=== PATIENT | female | born 1965 | race Caucasian/White ===

== ENCOUNTER → 2017-04-26 | Outpatient (CLI) | payer MEDICAID | LOC: WI 10:08 | PROVIDERS: ATTEND Family Medicine | DX: Z53.9 Procedure and treatment not carried out, unspecified reason (principal) ==

== ENCOUNTER → 2017-05-03 | Outpatient (CLI) | payer MEDICAID ==
--- NOTE | 2017-05-03 15:16 | WOMENS IMAGING REPORT ---
EXAM DESCRIPTION: BILAT SCREENING MAMMO W/CAD COMPLETED DATE/TIME: 05/03/2017 9:11 am REASON FOR STUDY: SCREENING MAMMO Z12.31 ENCNTR SCREEN MAMMOGRAM FOR MALIGNANT NEOPLASM OF AKHIL COMPARISON: None. TECHNIQUE: Standard craniocaudal and mediolateral oblique views of each breast recorded using digita l acquisition. LIMITATIONS: None. FINDINGS: No masses, calcifications or architectural distortion. No areas of suspicion. Read with the assistance of CAD. .[facility] - R2 Cenova Version 1.3 .[facility] - R2 Cenova Version 1.3 .[facility] - R2 Cenova Version 2.4 .[facility] - R2 Cenova Version 2.4 .[facility] - R2 [employer] Version 9.2 IMPRESSION: NORMAL MAMMOGRAM. BIRADS 1. BREAST DENSITY: b. There are scattered areas of fibroglandular density. BIRAD: 1 NEGATIVE RECOMMENDATION: ROUTINE SCREENING COMMENT: The patient has been notified of the results by letter per SA requirements. Additional no tification policies are in place for contacting patient with suspicious or incomplete findings. Quality ID #[id number]: The [employer] recommends an annual screening mammogram for women aged 40 years or over. This facility utilizes a reminder system to ensure that all patients receive reminder letters, and/or direct phone calls for appointments. This includes reminders for routine scr eening mammograms, diagnostic mammograms, or other Breast Imaging Interventions when appropriate. Th is patient will be placed in the appropriate reminder system. The [employer] (ACR) has developed recommendations for screening MRI of the breast s in certain patient populations, to be used in conjunction with mammography. Breast MRI surveillanc e may be appropriate for women with more than 20% lifetime risk of developing breast cancer as deter mined by genetic testing, significant family history of the disease, or history of mantle radiation f or Hodgkins Disease. ACR Practice Guidelines 2008. TECHNICAL DOCUMENTATION: FINDING NUMBER: (1) ASSESSMENT: (1) JOB ID: [id number] [employer]- All Rights Reserved
== END ==
LOC: WI 03-17 09:43
PROVIDERS: ATTEND Family Medicine
DX: Z12.31 Encounter for screening mammogram for malignant neoplasm of breast (principal)
CPT/HCPCS: 77067; G0202

== ENCOUNTER 2017-05-14 07:39 | Day surgery (SDC) | payer MEDICAID ==
[~2017-05-14 07:39] MED LIST: DEXMEDETOMIDINE INJ 80 MCG/20 ML VIAL IV ONE; LIDOCAINE 2% INJ-PF (20 MG/ML) 10 ML AMPUL ONE; ONDANSETRON HCL INJ/PF 4 MG/2 ML SDV ONE; PROPOFOL INJ 200 MG/20 ML VIAL IV ONE
[2017-05-14] MEDS ORDERED: DIPHENHYDRAMINE HCL 50 MG/ML VIAL IV PRN (10:00)
[2017-05-14] MEDS ORDERED: MEPERIDINE HCL/PF INJ 25 MG/1 ML DISP.SYRIN IV PRN (10:00)
[2017-05-14] MEDS ORDERED: MORPHINE SULFATE 10 MG/ML INJ IV PRN (10:00)
[2017-05-14] MEDS ORDERED: FENTANYL CITRATE INJ/PF 100 MCG/2 ML AMPUL IV PRN ×3 (10:00)
[2017-05-14] MEDS ORDERED: PROMETHAZINE HCL INJ 25 MG/1 ML VIAL IV PRN ×3 (10:00→10:14)
[2017-05-14] MEDS ORDERED: ACETAMINOPHEN 325 MG TABLET PO PRN (10:13)
[2017-05-14] MEDS ORDERED: SIMETHICONE 80 MG TAB.CHEW PO PRN (10:13)
--- NOTE | 2017-05-14 11:39 | Operative Report ---
Operative Report DATE OF SURGERY: 05/14/17 Operative Report: Risks, benefits and alternatives of the procedure including risks of bleeding, perforation requiring surgery are explained to the patient detail and informed consent was obtained. Patient is taken back to the operating room and placed in the left, lateral decubital position. Timeout was called. Propofol medications administered. A rectal examination was done which did not reveal any masses, tears or fissures. An Olympus videoscope was inserted into the patient's rectum. The scope was then carefully advanced all the way to the cecum. The cecum was identified by the usual anatomical landmarks including the ileocecal valve as well as the appendiceal office. Photodocumentation is obtained. Prep was good. Scope was then sequentially pulled back via the various segments of the colon including the ascending colon, hepatic flexure, transverse colon, splenic flexure, descending colon finding the rectosigmoid portions of the colon. Retroflexion maneuvers performed. PREOPERATIVE DIAGNOSIS: Colorectal cancer screening POSTOPERATIVE DIAGNOSIS: Colon polyp removed via biopsy forceps, internal hemorrhoids OPERATION: Colonoscopy with biopsy SURGEON: ALEXA MARTINEZ ANESTHESIA: LMAC TISSUE REMOVED OR ALTERED: As noted above. COMPLICATIONS: None. ESTIMATED BLOOD LOSS: None. INTRAOPERATIVE FINDINGS: As noted above. PROCEDURE: Patient tolerated procedure well. No immediate postprocedure complications are noted. Patient discharged in good condition. Discharge date 05/14/2017. Discharge diet: Regular. Discharge activity: Regular. 2-3 week follow-up to discuss findings. 3-5 year surveillance colonoscopy. Patient is instructed to call the office or proceed to the emergency room should there be any further problems or questions. We will await pathology.
[2017-05-14 15:00] VITALS: BP 120/73
== END 2017-05-14 11:50 | disposition home or self-care (01) ==
LOC: OROUT 07:39
PROVIDERS: ATTEND Internal Medicine Gastroenterology
PROC: 0DBN8ZX Excision of Sigmoid Colon, Via Natural or Artificial Opening Endoscopic, Diagnostic (ICD-10-PCS; principal; 2017-05-14 08:30)
DX: Z12.11 Encounter for screening for malignant neoplasm of colon (principal); K63.5 Polyp of colon; K64.8 Other hemorrhoids; E78.5 Hyperlipidemia, unspecified; E04.9 Nontoxic goiter, unspecified; Z87.891 Personal history of nicotine dependence; Z79.899 Other long term (current) drug therapy; Z79.51 Long term (current) use of inhaled steroids; Z79.1 Long term (current) use of non-steroidal anti-inflammatories (NSAID)
CPT/HCPCS: 45380; 88305 ×2; J2405; J2704; J3490 ×2; 810

== ENCOUNTER → 2017-08-18 | Outpatient (CLI) | payer MEDICAID ==
[2017-08-18 08:20] LABS: ABSOLUTE BASOPHILS # (AUTO) 0.1 10^3/uL (0.0-0.2); ABSOLUTE EOSINOPHILS # (AUTO) 0.2 10^3/uL (0.0-0.6); ABSOLUTE LYMPHOCYTES (AUTO) 1.2 10^3/uL (0.5-4.7); ABSOLUTE MONOCYTES (AUTO) 0.4 10^3/uL (0.1-1.4); ABSOLUTE NEUT (AUTO) 4.4 10^3/uL (1.7-8.2); EOSINOPHILS % (AUTO) 3.9 % (0-6); HEMATOCRIT 40.7 % (36.0-47.0); HEMOGLOBIN 13.7 g/dL (12.0-15.5); MEAN CORPUSCULAR HGB CONC 33.6 g/dL (32.0-36.0); MEAN CORPUSCULAR VOLUME 89 fl (80-97); MONOCYTES % (AUTO) 5.9 % (3-13); PLATELET COUNT 286 10^3/uL (150-450); RED BLOOD COUNT 4.56 10^6/uL (3.72-5.28); RED CELL DISTRIBUTION WIDTH 13.1 % (11.5-14.0); SEGMENTED NEUTROPHILS % (AUTO) 70.2 % (42-78); TOTAL CELLS COUNTED % (AUTO) 100 %; WHITE BLOOD COUNT 6.2 10^3/uL (4.0-10.5)
[2017-08-18 08:43] LABS: ALANINE AMINOTRANSFERASE 37 U/L (9-52); ALBUMIN 3.9 g/dL (3.5-5.0); ALKALINE PHOSPHATASE 48 U/L (38-126); ANION GAP 7 (5-19); ASPARTATE AMINO TRANSFERASE 19 U/L (14-36); BILIRUBIN,DIRECT 0.3 mg/dL (0.0-0.4); BILIRUBIN,TOTAL 0.4 mg/dL (0.2-1.3); BLOOD UREA NITROGEN 6 mg/dL (7-20); CALCIUM 9.6 mg/dL (8.4-10.2); CARBON DIOXIDE 25 mmol/L (22-30); CHLORIDE 110 mmol/L (98-107); GLUCOSE 99 mg/dL (75-110); LITHIUM 1.2 mEq/L (0.6-1.2); SODIUM 141.8 mmol/L (137-145); TOTAL PROTEIN 6.2 g/dL (6.3-8.2); TRIGLYCERIDES 112 mg/dL (<150)
[2017-08-18 08:54] LABS: DIRECT LDL 101 mg/dL (<100)
== END ==
LOC: OD 07:22
PROVIDERS: ATTEND Nurse Practitioner Psychiatric/Mental Health
DX: F40.00 Agoraphobia, unspecified (principal); Z79.899 Other long term (current) drug therapy
CPT/HCPCS: 36415; 80053; 80061; 80178; 85025

== ENCOUNTER → 2017-10-29 | Outpatient (CLI) | payer MEDICAID ==
[2017-10-29 09:34] LABS: BLOOD UREA NITROGEN 12 mg/dL (7-20); LITHIUM 1.5 mEq/L (0.6-1.2)
== END ==
LOC: OD 07:52
PROVIDERS: ATTEND Nurse Practitioner Psychiatric/Mental Health
DX: F40.00 Agoraphobia, unspecified (principal)
CPT/HCPCS: 36415; 80178; 82565; 84520

== ENCOUNTER 2018-01-05 02:48 | Observation (INO) | payer MEDICAID ==
--- NOTE | 2018-01-05 04:19 | ER Document Report ---
ED General - General Mode of Arrival: Ambulatory Information source: Patient TRAVEL OUTSIDE OF THE [place] IN LAST 30 DAYS: No <JOSEFA REYNOSO - Last Filed: 01/05/18 04:43> <RUBIA FRY - Last Filed: 01/05/18 06:54> - General Stated Complaint: ABDOMINAL PAIN Time Seen by Provider: 01/05/18 03:54 Notes: Patient is a 52 y.o female with a PMHx of chronic lower back pain, anxiety, bipolar disorder, depression, schizophrenia, hypothyroidism and a PSHx of hysterectomy and inguinal hernia repair. She presents to the ED with periumbilical abd pain of onset yesterday morning at 0300. Pt reports that she woke up from sleep yesterday morning due to her abd pain and throughout the day she was feeling some pain to her epigastric region/chest and had believed it to be gas and took medication but was without any relief. Pt also reports diarrhea yesterday. Pt reports taking medications for her bipolar disorder and thyroid. She denies still taking any medications for her chronic lower back pain. Pt still has her appendix. (JOSEFA REYNOSO) - Related Data Allergies/Adverse Reactions: No Known Allergies Allergy (Verified 05/13/17 10:10) Past Medical History - General Information source: Patient - Social History Smoking Status: Current Every Day Smoker Cigarette use (# per day): Yes - 1.5 packs/day Smoking Education Provided: Yes Frequency of alcohol use: None Family History: Reviewed & Not Pertinent - Past Medical History Cardiac Medical History: Reports: Hx Pulmonary Embolism Endocrine Medical History: Reports: Hx Hypothyroidism Musculoskeletal Medical History: Reports Hx Arthritis - LOWER BACK Psychiatric Medical History: Reports: Hx Anxiety, Hx Bipolar Disorder, Hx Depression, Hx Schizophrenia Past Surgical History: Reports: Hx Hysterectomy, Hx Inguinal Hernia - Immunizations Hx Diphtheria, Pertussis, Tetanus Vaccination: No <JOSEFA REYNOSO - Last Filed: 01/05/18 04:43> Review of Systems - Review of Systems Constitutional: No symptoms reported EENT: No symptoms reported Cardiovascular: No symptoms reported Respiratory: No symptoms reported Gastrointestinal: See HPI, Abdominal pain, Diarrhea Genitourinary: No symptoms reported Female Genitourinary: No symptoms reported Musculoskeletal: No symptoms reported Skin: No symptoms reported Hematologic/Lymphatic: No symptoms reported Neurological/Psychological: No symptoms reported -: Yes All other systems reviewed and negative <JOSEFA REYNOSO - Last Filed: 01/05/18 04:43> Physical Exam <JOSEFA REYNOSO - Last Filed: 01/05/18 04:43> <RUBIA FRY - Last Filed: 01/05/18 06:54> - Vital signs Vitals: Temp Resp 98.3 F 33 H 01/05/18 02:58 01/05/18 02:58 - Notes Notes: Physical Exam: General: Alert. HEENT: Normocephalic. Atraumatic. PERRL. Extraocular movements intact. Oropharynx clear. Neck: Supple. Non-tender. Respiratory: No respiratory distress. Clear and equal breath sounds bilaterally. Cardiovascular: Regular rate and rhythm. Abdominal: Very tender to palpate RLQ, guarding. Percussion resonant throughout. Active bowel sounds. Back: Non-tender. No deformity or step off. Extremities: Moves all four extremities. Upper extremities: Normal inspection. Normal ROM. Lower extremities: Normal inspection. No edema. Normal ROM. Neurological: Normal cognition. AAOx3. Normal speech. Psychological: Normal affect. Normal Mood. Skin: Warm. Dry. Normal color. (JOSEFA REYNOSO) Course - Laboratory Result Diagrams: 01/05/18 03:10 01/05/18 03:10 <JOSEFA REYNOSO - Last Filed: 01/05/18 04:43> - Laboratory Result Diagrams: 01/05/18 03:10 01/05/18 03:10 - EKG Interpretation by Nm EKG shows normal: Sinus rhythm, [place], Intervals, QRS Complexes. abnormal: ST-T Waves - Nonspecific anterolateral T abnormalities Rate: Normal - 75 Rhythm: NSR [place]/QRS: LAHB/LAFB - Transfer of Care Care transferred to following provider: Dr. Bourne <RUBIA FRY - Last Filed: 01/05/18 06:54> - Vital Signs Vital signs: Temp Pulse Resp BP Pulse Ox 98.3 F 20 144/86 H 96 01/05/18 02:58 01/05/18 06:00 01/05/18 05:01 01/05/18 06:00 - Laboratory Laboratory results interpreted by hi: 01/05/18 01/05/18 01/05/18 03:10 03:10 05:40 WBC 13.1 H Seg Neutrophils % 82.7 H Lymphocytes % 8.0 L Absolute Neutrophils 10.8 H Potassium 3.3 L Chloride 108 H BUN 6 L Glucose 147 H AST 87 H Total Protein 6.2 L [place] 0.5 L - Transfer of Care Notes: 01/05/18 06:54 Patient is pending oral and IV contrast a CT scan of the abdomen and pelvis. Diagnosis and disposition can likely be made after the scan results. (RUBIA FRY) Discharge <JOSEFA REYNOSO - Last Filed: 01/05/18 04:43> <RUBIA FRY - Last Filed: 01/05/18 06:54> - Discharge Clinical Impression: Abdominal pain Qualifiers: Abdominal location: unspecified location Qualified Code(s): R10.9 - Unspecified abdominal pain Referrals: PANDA AMIN NP [Primary Care Provider] - Follow up as needed Scribe Attestation: 01/05/18 05:12 I personally performed the services described in the documentation, reviewed and edited the documentation which was dictated to the scribe in my presence, and it accurately records my words and actions. (RUBIA FRY) Scribe Documentation - Scribe Written by Kayleigh:: Kayleigh Lyn 01/05/18 0420 acting as scribe for :: Jessica <JOSEFA REYNOSO - Last Filed: 01/05/18 04:43>
[2018-01-05] MEDS ORDERED: NORMAL SALINE 1000 ML 1,000 ML IV ONE ×2 (04:21→09:45)
[2018-01-05] MEDS ORDERED: FENTANYL CITRATE INJ/PF 100 MCG/2 ML AMPUL IV ONE ×3 (04:21→09:59)
[2018-01-05 04:26] LABS: ABSOLUTE BASOPHILS # (AUTO) 0.1 10^3/uL (0.0-0.2); ABSOLUTE EOSINOPHILS # (AUTO) 0.5 10^3/uL (0.0-0.6); ABSOLUTE MONOCYTES (AUTO) 0.6 10^3/uL (0.1-1.4); ABSOLUTE NEUT (AUTO) 10.8 10^3/uL (1.7-8.2); BASOPHILS % (AUTO) 0.4 % (0-2); HEMATOCRIT 41.9 % (36.0-47.0); HEMOGLOBIN 14.3 g/dL (12.0-15.5); MEAN CORPUSCULAR HEMOGLOBIN 30.9 pg (27.0-33.4); MEAN CORPUSCULAR HGB CONC 34.1 g/dL (32.0-36.0); MEAN CORPUSCULAR VOLUME 91 fl (80-97); MONOCYTES % (AUTO) 4.9 % (3-13); PLATELET COUNT 392 10^3/uL (150-450); RED BLOOD COUNT 4.62 10^6/uL (3.72-5.28); RED CELL DISTRIBUTION WIDTH 13.8 % (11.5-14.0); SEGMENTED NEUTROPHILS % (AUTO) 82.7 % (42-78); TOTAL CELLS COUNTED % (AUTO) 100 %; WHITE BLOOD COUNT 13.1 10^3/uL (4.0-10.5)
[2018-01-05 04:54] LABS: ALANINE AMINOTRANSFERASE 51 U/L (9-52); ALBUMIN 3.6 g/dL (3.5-5.0); ALKALINE PHOSPHATASE 55 U/L (38-126); ANION GAP 6 (5-19); ASPARTATE AMINO TRANSFERASE 87 U/L (14-36); BILIRUBIN,DIRECT 0.3 mg/dL (0.0-0.4); BILIRUBIN,TOTAL 0.7 mg/dL (0.2-1.3); BLOOD UREA NITROGEN 6 mg/dL (7-20); CALCIUM 8.8 mg/dL (8.4-10.2); CARBON DIOXIDE 29 mmol/L (22-30); CHLORIDE 108 mmol/L (98-107); CREATINE KINASE 35 U/L (30-135); GLUCOSE 147 mg/dL (75-110); POTASSIUM 3.3 mmol/L (3.6-5.0); SODIUM 142.9 mmol/L (137-145); TOTAL PROTEIN 6.2 g/dL (6.3-8.2)
[2018-01-05] MEDS ORDERED: ERTAPENEM SODIUM INJ 1 GM VIAL IV ONE (05:34)
[2018-01-05] MEDS ORDERED: METOCLOPRAMIDE HCL INJ/PF 10 MG/2 ML SDV IV ONE (05:50)
--- NOTE | 2018-01-05 05:54 | RADIOLOGY REPORT (SQ) ---
EXAM DESCRIPTION: US ABDOMEN ANEURYSM SCREENING COMPLETED DATE/TME: 01/05/2018 04:20 CLINICAL HISTORY: 52 years, Female, Abdominal pain COMPARISON: 04/11/2015 FINDINGS: Single view of the chest with upright and supine views of the abdomen. Low lung volumes. Tortuosity of the thoracic aorta. Heart is not enlarged. Leads overlie the chest. No consolidation, pneumothorax, or pleural effusion. Air-filled loops of nondilated large and small bowel throughout the abdomen. No free intraperitoneal air. No definite abnormal calcifications. Degenerative change of the spine. No acute osseous abnormalities. IMPRESSION: 1. No acute pulmonary process. Nonobstructive bowel gas pattern. 2010 [employer]- All Rights Reserved
[2018-01-05 06:58] LABS: APPEARANCE,URINE CLEAR; BILIRUBIN,URINE NEGATIVE (NEGATIVE); COLOR,URINE AMBER; GLUCOSE, URINE NEGATIVE (NEGATIVE); KETONES,URINE TRACE mg/dL (NEGATIVE); LEUKOCYTE ESTERASE,URINE NEGATIVE (NEGATIVE); NITRITE,URINE NEGATIVE (NEGATIVE); PROTEIN,URINE NEGATIVE (NEGATIVE); URINE SPECIFIC GRAVITY 1.004; UROBILINOGEN,URINE NEGATIVE mg/dL (<2.0)
--- NOTE | 2018-01-05 09:17 | RADIOLOGY REPORT (SQ) ---
EXAM DESCRIPTION: CT ABD/PELVIS WITH IV ORAL COMPLETED DATE/TIME: 01/05/2018 8:46 am REASON FOR STUDY: Abdominal pain COMPARISON: None. TECHNIQUE: CT scan of the abdomen and pelvis performed using helical scanning technique with dynamic intravenous contrast injection and oral contrast. Images reviewed with lung, soft tissue, and bone w indows. Reconstructed coronal and sagittal MPR images reviewed. Delayed images for evaluation of the urinary system also acquired. All images stored on PACS. All CT scanners at this facility use dose modulation, iterative reconstruction, and/or weight based d osing when appropriate to reduce radiation dose to as low as reasonably achievable (ALARA). [facility]: Dose Right [facility]: CareDose [facility]: Dose Right [facility]: Teradose 4D [facility]: [employer] CONTRAST TYPE AND DOSE: contrast/concentration: Isovue 370.00 mg/ml; Total Contrast Delivered: 79.0 ml; Total Saline Delivered: 68.0 ml RENAL FUNCTION: Creatinine 0.66 RADIATION DOSE: CT Rad equipment meets quality standard of care and radiation dose reduction techniq ues were employed. CTDIvol: 6.2 - 8.6 mGy. DLP: 855 mGy-cm.. LIMITATIONS: None. FINDINGS: LOWER CHEST: Some minimal linear densities are identified in the lung bases right greater than left most consistent with atelectatic changes. LIVER: Normal size. No masses. No dilated ducts. Perihepatic ascitic fluid is identified. SPLEEN: Normal size. No focal lesions. PANCREAS: No masses. No significant calcifications. No adjacent inflammation or peripancreatic fluid collections. Pancreatic duct not dilated. GALLBLADDER: Rim calcified gallstone is identified. There is thickening of the gallbladder whitaker and the possibility of cholecystitis should be considered ADRENAL GLANDS: No significant masses or asymmetry. RIGHT KIDNEY AND URETER: No solid masses. No significant calcifications. No hydronephrosis or hyd roureter. LEFT KIDNEY AND URETER: No solid masses. No significant calcifications. No hydronephrosis or hydr oureter. AORTA AND VESSELS: No aneurysm. No dissection. Renal arteries, SMA, celiac without stenosis. RETROPERITONEUM: No retroperitoneal adenopathy, hemorrhage or masses. BOWEL AND PERITONEAL CAVITY: No masses or inflammatory changes. No peritoneal masses. APPENDIX: Normal. PELVIS: No mass. No free fluid. Urine distended bladder is identified. ABDOMINAL WALL: No masses. No hernias. BONES: No significant or acute findings. OTHER: No other significant finding. IMPRESSION: Rim calcified gallstone is identified. There is thickening of the gallbladder whitaker and perihepatic ascitic fluid. The possibility of cholecystitis should be considered. Urine distended bladder is identified. Other findings as noted above TECHNICAL DOCUMENTATION: JOB ID: [id number] Quality ID # [id number]: Final reports with documentation of one or more dose reduction techniques (e.g., Au tomated exposure control, adjustment of the mA and/or kV according to patient size, use of iterative reconstruction technique) 2010 [employer]- All Rights Reserved Reading location - IP/workstation name: [email or web address]
--- NOTE | 2018-01-05 09:44 | ER Document Report ---
ED GI/ - General Chief Complaint: Abdominal Pain Stated Complaint: ABDOMINAL PAIN Time Seen by Provider: 01/05/18 03:54 Mode of Arrival: Ambulatory Notes: 52-year-old female patient signed over to me from Dr. Neri for follow-up results on CT abdomen and pelvis. Patient has had a 2 day history of worsening abdominal pain. Has had some diarrhea. Bloating. Took her Zantac but did not help. This morning was having such severe pain that she called the ambulance. Feeling a little bit better since arriving but still having pretty significant pain. Patient now states that the pain is mostly in the epigastric and right upper quadrant radiating to her right shoulder. Nothing seems to make it better or worse. Very thirsty. Patient received Invanz due to concern for intra-abdominal infection with the x-ray showing some dilated loops of bowel. Patient has not had anything to eat or drink in greater than 12 hours. TRAVEL OUTSIDE OF THE [place] IN LAST 30 DAYS: No - HPI Patient complains to provider of: Abdominal pain, Diarrhea - Related Data Allergies/Adverse Reactions: No Known Allergies Allergy (Verified 01/05/18 08:44) Past Medical History - General Information source: Patient - Social History Smoking Status: Current Every Day Smoker Cigarette use (# per day): Yes - 1.5 packs/day Chew tobacco use (# tins/day): No Frequency of alcohol use: None Drug Abuse: None Family History: Reviewed & Not Pertinent Patient has suicidal ideation: No Patient has homicidal ideation: No - Past Medical History Cardiac Medical History: Reports: Hx Pulmonary Embolism Denies: Hx Atrial Fibrillation, Hx Congestive Heart Failure, Hx Coronary Artery Disease, Hx Heart Attack, Hx Hypercholesterolemia, Hx Hypertension Pulmonary Medical History: Denies: Hx Asthma, Hx Bronchitis, Hx COPD, Hx Pneumonia, Hx Tuberculosis Neurological Medical History: Denies: Hx Cerebrovascular Accident, Hx Seizures Endocrine Medical History: Reports: Hx Hypothyroidism Renal/ Medical History: Denies: Hx Peritoneal Dialysis Musculoskeletal Medical History: Reports Hx Arthritis - LOWER BACK Psychiatric Medical History: Reports: Hx Anxiety, Hx Bipolar Disorder, Hx Depression, Hx Schizophrenia Past Surgical History: Reports: Hx Hysterectomy, Hx Inguinal Hernia. Denies: Hx Appendectomy, Hx Bowel Surgery, Hx Section, Hx Cholecystectomy, Hx Mastectomy, Hx Tonsillectomy, Hx Tubal Ligation - Immunizations Hx Diphtheria, Pertussis, Tetanus Vaccination: No Review of Systems - Review of Systems Constitutional: denies: Fever, Malaise, Weakness EENT: No symptoms reported Cardiovascular: Chest pain. denies: Palpitations, Heart racing Respiratory: denies: Cough, Hurts to breathe, Short of breath, Wheezing Gastrointestinal: Abdominal pain, Diarrhea, Nausea, Vomiting Genitourinary: denies: Burning, Dysuria, Discharge Musculoskeletal: Joint pain, Other - Achiness in the right shoulder. denies: Back pain, Gout Skin: denies: Dryness, Lesions, Lumps, Rash Hematologic/Lymphatic: denies: Anemia, Blood clots, Easy bleeding, Easy bruising Neurological/Psychological: denies: Confusion, Weakness, Numbness Physical Exam - Vital signs Vitals: Temp Resp 98.3 F 33 H 01/05/18 02:58 01/05/18 02:58 Interpretation: Normal - General General appearance: Appears well, Alert In distress: Mild Notes: Very uncomfortable appearing at time of repeat evaluation. - HEENT Head: Normocephalic, Atraumatic Eyes: Normal Pupils: PERRL Mucous membranes: Dry - Respiratory Respiratory status: No respiratory distress Chest status: Nontender Breath sounds: Normal Chest palpation: Normal - Cardiovascular Rhythm: Regular Heart sounds: Normal auscultation Murmur: No - Abdominal Inspection: Normal Distension: No distension Bowel sounds: Normal Tenderness: Tender, Knowles's sign, Other - There is significant guarding and tenderness palpable in the right upper quadrant with a positive Knowles sign. Organomegaly: No organomegaly - Back Back: Normal, Nontender - Extremities General upper extremity: Normal inspection, Nontender, Normal color, Normal ROM , Normal temperature General lower extremity: Normal inspection, Nontender, Normal color, Normal ROM , Normal temperature. No: Sonya's sign - Neurological Neuro grossly intact: Yes Cognition: Normal Orientation: AAOx4 [place] Coma Scale Eye Opening: Spontaneous [place] Coma Scale Verbal: Oriented Prudencio Coma Scale Motor: Obeys Commands Prudencio Coma Scale Total: 15 Speech: Normal Motor strength normal: LUE, RUE, LLE, RLE Sensory: Normal - Psychological Associated symptoms: Normal affect, Normal mood - Skin Skin Temperature: Warm Skin Moisture: Dry Skin Color: Normal Course - Re-evaluation Re-evalutation: 01/05/18 09:52 At this time there is some concern for cholecystitis. Antibiotics have already been given. Patient remains exquisitely tender in the right upper quadrant with CT evidence of pericholecystic fluid. I have ordered the ultrasound but will go ahead and call general surgery right now to see if they would rather proceed directly to the OR. Consult pending with Dr. Ramírez 01/05/18 15:[address] Ramírez with general surgery. Will admit to the hospital for cholecystectomy and treatment at this time. - Vital Signs Vital signs: Temp Pulse Resp BP Pulse Ox 97.6 F 94 13 169/83 H 93 01/05/18 14:07 01/05/18 14:52 01/05/18 14:52 01/05/18 14:52 01/05/18 14:52 - Laboratory Result Diagrams: 01/05/18 03:10 01/05/18 03:10 Laboratory results interpreted by me: 01/05/18 01/05/18 01/05/18 03:10 03:10 05:40 WBC 13.1 H Seg Neutrophils % 82.7 H Lymphocytes % 8.0 L Absolute Neutrophils 10.8 H Potassium 3.3 L Chloride 108 H BUN 6 L Glucose 147 H AST 87 H Total Protein 6.2 L Urine Ketones [place] 0.5 L 01/05/18 05:50 WBC Seg Neutrophils % Lymphocytes % Absolute Neutrophils Potassium Chloride BUN Glucose AST Total Protein Urine Ketones TRACE H [place] Discharge - Discharge Clinical Impression: Acute cholecystitis due to biliary calculus Condition: Good Disposition: ADMITTED INPATIENT Admitting Provider: Surgicalist - Dr. Ramírez Unit Admitted: Surgical Floor
--- NOTE | 2018-01-05 11:04 | PDOC H&P ---
History of Present Illness Admission Date/PCP: PANDA AMIN NP Patient complains of: Right upper quadrant abdominal pain, nausea, vomiting History of Present Illness: BEATRIS TODD is a 52 year old female with a 2 day history of severe right upper quadrant pain, nausea, and vomiting. She reports that her last intake was on Wednesday. The pain is sharp, stabbing, and unrelenting. The patient has experienced nausea and vomiting. She is unable to hold anything down. Nothing makes her pain better. Palpation and movement make her pain worse. The patient does report subjective fevers and chills. She denies chest pain, shortness of breath, melena, hematochezia, hematemesis, dizziness, orthostasis, fatigue. Past Medical History Cardiac Medical History: Reports: Pulmonary Embolism Denies: Atrial Fibrillation, Congestive Heart Failure, Coronary Artery Disease, Myocardial Infarction, Hyperlipidema, Hypertension Pulmonary Medical History: Denies: Asthma, Bronchitis, Chronic Obstructive Pulmonary Disease (COPD), Pneumonia, Tuberculosis Neurological Medical History: Denies: Seizures Endocrine Medical History: Reports: Hypothyroidism Musculoskeltal Medical History: Reports: Arthritis - LOWER BACK Psychiatric Medical History: Reports: Bipolar Disorder, Depression Hematology: Denies: Anemia Past Surgical History Past Surgical History: Reports: Hysterectomy, Other - inguinal hernia repair Denies: Amputation, Appendectomy, Section, Cholecystectomy, Mastectomy, Tonsillectomy, Tubal Ligation Social History Smoking Status: Current Every Day Smoker Frequency of Alcohol Use: None Hx Recreational Drug Use: No Hx Prescription Drug Abuse: No Family History Family History: Reviewed & Not Pertinent Parental Family History Reviewed: Yes Children Family History Reviewed: Yes Sibling(s) Family History Reviewed.: Yes Medication/Allergy Allergies/Adverse Reactions: No Known Allergies Allergy (Verified 01/05/18 08:44) Review of Systems Constitutional: PRESENT: chills, fever(s). ABSENT: fatigue Eyes: ABSENT: visual disturbances Ears: ABSENT: hearing changes Nose, Mouth, and Throat: ABSENT: sore throat Cardiovascular: ABSENT: chest pain Respiratory: ABSENT: cough, dyspnea Gastrointestinal: PRESENT: abdominal pain, bloating, nausea, vomiting. ABSENT: hematemesis, hematochezia, melena Genitourinary: ABSENT: dysuria Musculoskeletal: PRESENT: back pain Integumentary: ABSENT: pruritus, rash Neurological: ABSENT: abnormal speech, convulsions, dizziness Psychiatric: PRESENT: depression. ABSENT: anxiety Endocrine: ABSENT: cold intolerance, heat intolerance Hematologic/Lymphatic: PRESENT: other - remote h/o PE. Currently not n anticoagulation. ABSENT: easy bleeding, easy bruising Physical Exam Vital Signs: Temp Pulse Resp BP Pulse Ox 98.3 F 20 141/94 H 96 01/05/18 02:58 01/05/18 08:01 01/05/18 08:01 01/05/18 08:01 Intake & Output 01/04/18 01/05/18 01/06/18 06:59 06:59 06:59 Intake Total 1000 1900 Balance 1000 1900 Weight 72.575 kg General appearance: PRESENT: mild distress Head exam: PRESENT: atraumatic, normocephalic Eye exam: PRESENT: EOMI, PERRLA. ABSENT: scleral icterus Mouth exam: PRESENT: moist, neck supple Teeth exam: PRESENT: poor dentation Neck exam: ABSENT: lymphadenopathy, thyromegaly, tracheal deviation Respiratory exam: PRESENT: decreased breath sounds, unlabored. ABSENT: tachypnea Cardiovascular exam: PRESENT: RRR Pulses: PRESENT: normal radial pulses Vascular exam: PRESENT: normal capillary refill. ABSENT: pallor GI/Abdominal exam: PRESENT: guarding - RUQ, Knowles's sign, tenderness - RUQ. ABSENT: distended Rectal exam: PRESENT: deferred Extremities exam: ABSENT: pedal edema Musculoskeletal exam: ABSENT: deformity Neurological exam: PRESENT: alert, awake, oriented to person, oriented to place , oriented to time, oriented to situation, CN II-XII grossly intact. ABSENT: motor sensory deficit Psychiatric exam: ABSENT: agitated, anxious Focused psych exam: ABSENT: delusional Skin exam: ABSENT: cyanosis, erythema, jaundice Results Laboratory Results: 01/05/18 03:10 01/05/18 03:10 01/05/18 01/05/18 01/05/18 03:10 03:10 04:40 WBC 13.1 H RBC 4.62 Hgb 14.3 Hct 41.9 MCV 91 MCH 30.9 MCHC 34.1 RDW 13.8 Plt Count 392 Seg Neutrophils % 82.7 H Lymphocytes % 8.0 L Monocytes % 4.9 Eosinophils % 4.0 Basophils % 0.4 Absolute Neutrophils 10.8 H Absolute Lymphocytes 1.0 Absolute Monocytes 0.6 Absolute Eosinophils 0.5 Absolute Basophils 0.1 Sodium 142.9 Potassium 3.3 L Chloride 108 H Carbon Dioxide 29 Anion Gap 6 BUN 6 L Creatinine 0.66 Est GFR ( Amer) > 60 Est GFR (Non-Af Amer) > 60 Glucose 147 H Lactic Acid 1.1 Calcium 8.8 Total Bilirubin 0.7 AST 87 H ALT 51 Alkaline Phosphatase 55 Total Protein 6.2 L Albumin 3.6 Urine Color Urine Appearance Urine pH Ur Specific [place] Urine Protein Urine Glucose (UA) Urine Ketones Urine Blood Urine Nitrite Ur Leukocyte Esterase Urine WBC (Auto) Urine RBC (Auto) 01/05/18 05:50 WBC RBC Hgb Hct MCV MCH MCHC RDW Plt Count Seg Neutrophils % Lymphocytes % Monocytes % Eosinophils % Basophils % Absolute Neutrophils Absolute Lymphocytes Absolute Monocytes Absolute Eosinophils Absolute Basophils Sodium Potassium Chloride Carbon Dioxide Anion Gap BUN Creatinine Est GFR ( Amer) Est GFR (Non-Af Amer) Glucose Lactic Acid Calcium Total Bilirubin AST ALT Alkaline Phosphatase Total Protein Albumin Urine Color ABIGAIL Urine Appearance CLEAR Urine pH 7.0 Ur Specific [place] 1.004 Urine Protein NEGATIVE Urine Glucose (UA) NEGATIVE Urine Ketones TRACE H Urine Blood NEGATIVE Urine Nitrite NEGATIVE Ur Leukocyte Esterase NEGATIVE Urine WBC (Auto) 1 Urine RBC (Auto) 1 01/05/18 01/05/18 03:10 03:10 Creatine Kinase 35 Troponin I < 0.012 Impressions: Acute Abdomen Series 01/05/18 04:20 IMPRESSION: 1. No acute pulmonary process. Nonobstructive bowel gas pattern. 2010 [employer]- All Rights Reserved Abdomen/Pelvis CT 01/05/18 05:50 IMPRESSION: Rim calcified gallstone is identified. There is thickening of the gallbladder whitaker and perihepatic ascitic fluid. The possibility of cholecystitis should be considered. Urine distended bladder is identified. Other findings as noted above Status: Image reviewed by me Assessment & Plan - Inpatient Certification Based on my medical assessment, after consideration of the patient's comorbidities, presenting symptoms, or acuity I expect that the services needed warrant INPATIENT care.: Yes I certify that my determination is in accordance with my understanding of Medicare's requirements for reasonable and necessary INPATIENT services [42 CFR 412.3e].: Yes Medical Necessity: Need For IV Fluids, Need for IV Antibiotics, Need for Surgery - Plan Summary Plan Summary: This is a 52-year-old female with a 2 day history of sharp, stabbing, unrelenting right upper quadrant pain. She has experienced uncontrollable nausea and vomiting. She was evaluated in the emergency department and started on antibiotics. A CT scan was obtained. I have reviewed these images. The patient has a significantly thickened gallbladder wall with pericholecystic fluid and large calcified gallstones in the neck of the gallbladder. I believe the patient is experiencing acute cholecystitis. I have recommended surgical intervention. This is been discussed with the patient and her at length. The patient has requested cholecystectomy. Risks/benefits discussed, informed consent obtained, and all questions answered.
[2018-01-05] MEDS ORDERED: BUPIVACAINE HCL 0.25 % INJ/PF (2.5 MG/1 ML) 30 ML VIAL ONE (11:36)
[2018-01-05] MEDS ORDERED: KETOROLAC TROMETHAMINE 60 MG/2 ML SDV ONE (11:40)
[2018-01-05] MEDS ORDERED: PROPOFOL INJ 200 MG/20 ML VIAL IV ONE (11:41)
[2018-01-05] MEDS ORDERED: DEXAMETHASONE SOD PHOSPHATE INJ 4 MG/1 ML VIAL ONE (11:41)
[2018-01-05] MEDS ORDERED: ACETAMINOPHEN 1,000 MG/100 ML RTUPB IV ONE (11:41)
[2018-01-05] MEDS ORDERED: ONDANSETRON HCL INJ/PF 4 MG/2 ML SDV ONE (11:41)
[2018-01-05] MEDS ORDERED: FENTANYL CITRATE INJ/PF 100 MCG/2 ML AMPUL ONE ×2 (11:41)
[2018-01-05] MEDS ORDERED: MIDAZOLAM 2 MG/2 ML INJ ONE (11:41)
[2018-01-05] MEDS ORDERED: MORPHINE SULFATE 10 MG/ML INJ ONE (11:42)
[2018-01-05] MEDS ORDERED: PROMETHAZINE HCL INJ 25 MG/1 ML VIAL IV PRN ×2 (13:00)
[2018-01-05] MEDS ORDERED: OXYCODONE-ACETAMINOPHEN 5-325 MG TABLET PO PRN ×3 (13:00→14:03)
[2018-01-05] MEDS ORDERED: DIPHENHYDRAMINE HCL 50 MG/ML VIAL IV PRN (13:00)
[2018-01-05] MEDS ORDERED: MORPHINE SULFATE 10 MG/ML INJ IV PRN (13:00)
[2018-01-05] MEDS ORDERED: ONDANSETRON HCL INJ/PF 4 MG/2 ML SDV IV PRN ×2 (13:00→14:03)
[2018-01-05] MEDS ORDERED: MEPERIDINE HCL/PF INJ 25 MG/1 ML DISP.SYRIN IV PRN (13:00)
[2018-01-05] MEDS ORDERED: FENTANYL CITRATE INJ/PF 100 MCG/2 ML AMPUL IV PRN ×3 (13:00)
[2018-01-05] MEDS: FENTANYL CITRATE INJ/PF 100 MCG/2 ML AMPUL ONE ×2 (14:20→14:37)
[2018-01-05] MEDS ORDERED: SUCCINYLCHOLINE CHLORIDE INJ 200 MG/10 ML VIAL ONE (14:41)
[2018-01-05] MEDS ORDERED: VECURONIUM BROMIDE INJ 10 MG VIAL IV ONE (14:41)
--- NOTE | 2018-01-05 15:08 | EKG REPORT ---
SEVERITY:- ABNORMAL ECG - SINUS RHYTHM LEFT ANTERIOR FASCICULAR BLOCK CONSIDER ANTERIOR INFARCT NONSPECIFIC T ABNORMALITIES, ANT-LAT LEADS : Confirmed by: Nancy Melo MD 05-Jan-2018 15:07:54
[2018-01-05] MEDS ORDERED: DIPHENHYDRAMINE PO PRN (17:53)
[2018-01-05] MEDS ORDERED: HYDROXYZINE PAMOATE 50 MG CAPSULE PO PRN (17:53)
[2018-01-05] MEDS ORDERED: [UNRECOGNIZED DRUG - OTHER] PO PRN (17:53)
[2018-01-05] MEDS ORDERED: ACETAMINOPHEN PO PRN (17:53)
[2018-01-05] MEDS ORDERED: LITHIUM CARBONATE 300 MG CAPSULE PO SCH (22:00)
[2018-01-05] MEDS ORDERED: TRAZODONE HCL 50 MG TABLET PO SCH (22:00)
[2018-01-05] MEDS: MORPHINE SULFATE 10 MG/ML INJ IV PRN (23:00)
[2018-01-05] MEDS: GABAPENTIN 300 MG CAPSULE PO SCH (23:03)
[2018-01-05] MEDS: LURASIDONE HCL 40 MG TABLET PO SCH (23:03)
[2018-01-05] MEDS: BUSPIRONE HCL 10 MG TABLET PO SCH (23:04)
[2018-01-05] MEDS: DEXTROSE 5%-LACTATED RINGERS 1,000 ML IV PRN (23:14)
--- NOTE | 2018-01-05 23:43 | Operative Report ---
Nonrecallable Operative Report DATE OF SURGERY: 01/05/18 PREOPERATIVE DIAGNOSIS: Acute cholecystitis POSTOPERATIVE DIAGNOSIS: Acute, gangrenous, perforated cholecystitis OPERATION: Laparoscopic cholecystectomy SURGEON: BRIAN MOHAN LAPEL PADDER: SAI TAVAREZ ANESTHESIA: GA TISSUE REMOVED OR ALTERED: Gallbladder COMPLICATIONS: None apparent ESTIMATED BLOOD LOSS: 50 cc PROCEDURE: Drains/implants: 15 Bahamian round Rohan drain in the gallbladder fossa. Procedure in detail: After informed consent was obtained, the patient was laid in the supine position in the operating room. The abdomen was prepped and draped in a normal sterile fashion. A supraumbilical incision was created with a 15 blade scalpel. Dissection was carried through the subcutaneous tissue using sharp and blunt dissection. The cicatrix was identified, grasped with a Brett clamp, and retracted upwards. The linea alba fascia was incised sharply , the abdomen was entered sharply. The balloon trocar was inserted, and pneumoperitoneum was achieved. Repair of the abdomen revealed a copious amount of bile within the abdominal cavity. There was a dense inflammatory reaction in and around the dome of the gallbladder. A subxiphoid 5 mm port was placed under direct laparoscopic visualization. 2 more 5 mm trochars were placed in the right upper quadrant in similar fashion. Atraumatic graspers were placed through the 5 mm ports. The transverse colon was found to be adherent to the dome of the gallbladder the colon was very delicately teased away from the gallbladder using sharp and blunt dissection. There appeared to be an area of necrosis at the dome of the gallbladder that was perforated and leaking bilious fluid. The gallbladder was grasped and retracted cephalad. The infundibulum of the gallbladder was inspected. It was relatively free of adhesions or dense inflammation. The duodenum was also inspected, and appeared normal. Dissection was begun at the triangle of Calot. The cystic duct and cystic artery were fully visualized and skeletonized, seeing the liver through the triangle. The cystic artery was clipped and cut with laparoscopic instruments, however the cystic duct appeared too large to accommodate clips. Secondary to this, the gallbladder was dissected away from the liver bed using blunt dissection, sharp dissection, and Bovie electrocautery. Once the gallbladder was freed from the liver bed, a PDS Endoloop was secured around the cystic duct/infundibulum junction. The gallbladder was then amputated and placed into an Endo Catch bag. It was then pulled out through the umbilicus. The camera was then reinserted. The hilum was inspected. It was found to be free of any leakage of blood or bile. The liver bed was hemostatic. The abdomen was then copiously irrigated with saline solution, until the effluent was clear. A 15 Bahamian round Rohan drain was placed through the lateral trocar and left within the gallbladder fossa. The drain was sutured to the skin using 2-0 nylon suture. The 5 mm trochars were removed under direct laparoscopic visualization. The supraumbilical trocar was removed, and pneumoperitoneum was relieved. The supraumbilical fascia was closed using 0 Vicryl suture in [id number] fashion. The overlying skin was closed using 4-0 Vicryl Rapide suture in subcuticular fashion. All sponge, instrument, and needle counts were correct 2. Condition: Stable. [facility] PAC was scrubbed and present for the procedure. She assisted with placement of the trochars, manipulation of the gallbladder, removal of the gallbladder, placement of the drain, washing of the abdomen, closure of the fascia, and closure of the skin.
[2018-01-06] MEDS ORDERED: LEVOTHYROXINE SODIUM 0.112 MG TABLET PO SCH (06:00)
[2018-01-06] MEDS ORDERED: LEVOTHYROXINE SODIUM 0.075 MG TABLET PO SCH (06:00)
[2018-01-06] MEDS: GABAPENTIN 300 MG CAPSULE PO SCH (06:16)
[2018-01-06] MEDS: BUSPIRONE HCL 10 MG TABLET PO SCH (06:16)
[2018-01-06] MEDS: DEXTROSE 5%-LACTATED RINGERS 1,000 ML IV PRN (06:30)
[2018-01-06 06:45] LABS: RED BLOOD COUNT 3.68 10^6/uL (3.72-5.28); WHITE BLOOD COUNT 15.7 10^3/uL (4.0-10.5)
[2018-01-06 06:46] LABS: ABSOLUTE LYMPHOCYTES (AUTO) 1.5 10^3/uL (0.5-4.7); ABSOLUTE NEUT (AUTO) 13.1 10^3/uL (1.7-8.2); BASOPHILS % (AUTO) 0.3 % (0-2); EOSINOPHILS % (AUTO) 0.8 % (0-6); HEMATOCRIT 33.5 % (36.0-47.0); LYMPHOCYTES % (AUTO) 9.3 % (13-45); MEAN CORPUSCULAR HEMOGLOBIN 29.9 pg (27.0-33.4); MEAN CORPUSCULAR HGB CONC 32.9 g/dL (32.0-36.0); MEAN CORPUSCULAR VOLUME 91 fl (80-97); MONOCYTES % (AUTO) 5.9 % (3-13); PLATELET COUNT 312 10^3/uL (150-450); RED CELL DISTRIBUTION WIDTH 14.6 % (11.5-14.0); SEGMENTED NEUTROPHILS % (AUTO) 83.7 % (42-78); TOTAL CELLS COUNTED % (AUTO) 100 %
[2018-01-06 06:47] LABS: ABSOLUTE BASOPHILS # (AUTO) 0.1 10^3/uL (0.0-0.2); ABSOLUTE EOSINOPHILS # (AUTO) 0.1 10^3/uL (0.0-0.6); ABSOLUTE MONOCYTES (AUTO) 0.9 10^3/uL (0.1-1.4)
[2018-01-06 06:52] LABS: ALANINE AMINOTRANSFERASE 51 U/L (9-52); ALBUMIN 2.7 g/dL (3.5-5.0); ALKALINE PHOSPHATASE 46 U/L (38-126); AMYLASE 31 U/L (30-110); ANION GAP 7 (5-19); ASPARTATE AMINO TRANSFERASE 27 U/L (14-36); BILIRUBIN,DIRECT 0.3 mg/dL (0.0-0.4); BILIRUBIN,TOTAL 0.4 mg/dL (0.2-1.3); BLOOD UREA NITROGEN 3 mg/dL (7-20); CARBON DIOXIDE 22 mmol/L (22-30); CHLORIDE 113 mmol/L (98-107); GLUCOSE 107 mg/dL (75-110); LIPASE 36.6 U/L (23-300); POTASSIUM 3.7 mmol/L (3.6-5.0); SODIUM 142.3 mmol/L (137-145); TOTAL PROTEIN 4.8 g/dL (6.3-8.2)
[2018-01-06] MEDS ORDERED: MORPHINE SULFATE 10 MG/ML INJ ONE (07:18)
[2018-01-06] MEDS: MORPHINE SULFATE 10 MG/ML INJ IV PRN (07:29)
[2018-01-06] MEDS ORDERED: LITHIUM CARBONATE 300 MG CAPSULE PO SCH (08:00)
[2018-01-06] MEDS ORDERED: ALBUTEROL SULFATE 0.083% NEB 2.5 MG/3 ML AMPUL NEB PRN (08:05)
[2018-01-06] MEDS ORDERED: ENOXAPARIN SODIUM INJ 40 MG/0.4 ML DISP.SYRIN SUBCUT SCH (10:00)
[2018-01-06] MEDS ORDERED: ERTAPENEM SODIUM 1 GM in NORMAL SALINE 50 ML IV SCH (10:00)
[2018-01-06] MEDS ORDERED: (PENDING PHARMACY ID) (Liothyronine Sodium [Cytomel] 10 MCG) PO SCH (10:00)
[2018-01-06] MEDS ORDERED: LIOTHYRONINE SODIUM 5 MCG TABLET PO SCH (10:00)
[2018-01-06] MEDS ORDERED: (PENDING PHARMACY ID) (Estradiol [Estrace] 2 MG) PO SCH (10:00)
--- NOTE | 2018-01-06 10:27 | PDOC PROGRESS REPORT ---
Subjective Progress Note for:: 01/06/18 Subjective:: Patient feels much better since the operation. Patient has mild abdominal discomfort. She is tolerating a diet. She wants to go home. Reason For Visit: ACUTE GANGRENOUS PERFORATED CHOLECYSTITIS Physical Exam Vital Signs: Temp Pulse Resp BP Pulse Ox 98.0 F 69 16 113/69 95 01/06/18 07:49 01/06/18 07:49 01/06/18 07:49 01/06/18 07:49 01/06/18 07:49 Intake & Output 01/05/18 01/06/18 01/07/18 06:59 06:59 06:59 Intake Total 8000 Output Total 5440 500 Balance 2560 -500 Weight 74.5 kg General appearance: PRESENT: no acute distress, cooperative Eye exam: PRESENT: conjunctiva pink Respiratory exam: PRESENT: clear to auscultation barbara Cardiovascular exam: PRESENT: RRR GI/Abdominal exam: PRESENT: other - Soft, nondistended, very minimal abdominal tenderness in the upper abdomen. No peritoneal signs. Wounds are all clean dry and intact. Drain output is serosanguineous. Results Laboratory Results: 01/06/18 06:08 01/06/18 06:08 01/06/18 01/06/18 06:08 06:08 WBC 15.7 H RBC 3.68 L Hgb 11.0 L D Hct 33.5 L MCV 91 MCH 29.9 MCHC 32.9 RDW 14.6 H Plt Count 312 Seg Neutrophils % 83.7 H Lymphocytes % 9.3 L Monocytes % 5.9 Eosinophils % 0.8 Basophils % 0.3 Absolute Neutrophils 13.1 H Absolute Lymphocytes 1.5 Absolute Monocytes 0.9 Absolute Eosinophils 0.1 Absolute Basophils 0.1 Sodium 142.3 Potassium 3.7 Chloride 113 H Carbon Dioxide 22 Anion Gap 7 BUN 3 L Creatinine 0.41 L Est GFR ( Amer) > 60 Est GFR (Non-Af Amer) > 60 Glucose 107 Calcium 8.0 L Total Bilirubin 0.4 AST 27 ALT 51 Alkaline Phosphatase 46 Total Protein 4.8 L Albumin 2.7 L Amylase 31 Lipase 36.6 Impressions: Acute Abdomen Series 01/05/18 04:20 IMPRESSION: 1. No acute pulmonary process. Nonobstructive bowel gas pattern. 2010 [employer]- All Rights Reserved Abdomen/Pelvis CT 01/05/18 05:50 IMPRESSION: Rim calcified gallstone is identified. There is thickening of the gallbladder whitaker and perihepatic ascitic fluid. The possibility of cholecystitis should be considered. Urine distended bladder is identified. Other findings as noted above Assessment & Plan - Diagnosis (1) Acute cholecystitis due to biliary calculus Is this a current diagnosis for this admission?: Yes Plan: Patient looks very good after operation. Exam looks very good she wants to go home. Will discharge patient home with follow-up next week with Dr. Ramírez. Will give her discharge instructions on drain care. Her daughter is a nurse will help her. Her daughter was present in the room during conversations. She is to call for any problems.
--- NOTE | 2018-01-06 10:50 | DISCHARGE SUMMARY E ---
Discharge Summary NAME: BEATRIS TODD : 1965 AGE: 52Y ADMITTED: 01/05/2018 DISCHARGED: 01/06/2018 DISCHARGE DIAGNOSIS: Acute cholecystitis. PROCEDURE PERFORMED DURING HOSPITALIZATION: Laparoscopic cholecystectomy by Dr. Ramírez on 01/05/2018. HOSPITAL COURSE: The patient underwent the above mentioned surgery. She did very well postoperatively. Her exam looked very good with minimal tenderness. She was feeling quite well with minimal abdominal pain. Her LFTs appeared normal. Patient wanted to go home. Patient is now being discharged to home in good condition. She will follow up with Dr. Ramírez next week. The drain was kept in place. The output was serosanguineous. Drain care instructions were given to the patient. Her daughter is a nurse who will help her. She is encouraged to stay active at home. She may resume all of her home medications. Additional medication is Percocet 1 p.o. q. 4 hours p.r.n. pain. DICTATING PHYSICIAN: DEMOND SAUL M.D. [id number] PHY#: [id number] ID: [id number] JOB#: [id number] ACCT: [id number] cc:Mele CUI M.D. >
[2018-01-06] MEDS: LURASIDONE HCL 40 MG TABLET PO SCH (10:59)
[2018-01-06 12:57] VITALS: BP 119/76
== END 2018-01-06 13:12 | disposition home or self-care (01) ==
LOC: ER 02:48 → INTOOBSV 09:59 → EH 09:59 → 2S 15:22
PROVIDERS: ADMIT Surgery; ATTEND Surgery
PROC: 0FT44ZZ Resection of Gallbladder, Percutaneous Endoscopic Approach (ICD-10-PCS; principal; 2018-01-05 11:45)
DX: K80.00 Calculus of gallbladder with acute cholecystitis without obstruction (principal); F17.210 Nicotine dependence, cigarettes, uncomplicated; M25.511 Pain in right shoulder; F31.9 Bipolar disorder, unspecified; E03.9 Hypothyroidism, unspecified; M13.88 Other specified arthritis, other site; Z86.711 Personal history of pulmonary embolism; Z90.710 Acquired absence of both cervix and uterus; Z98.890 Other specified postprocedural states
CPT/HCPCS: 47562; 93005; 36415 ×2; 87040; 82150; 82550; 83690; 80178; 85025 ×2; 80053 ×2; 81001; 84484; 83605; 88304 ×2; 74022; 74177; 94799; 93010; G0378 ×2; J2250; J1100; J1885; J3010; J1335 ×2; J3490 ×10; J2765; J2270 ×2; J1650; J0330; J2405; S0020; J7030; J2704; J0131; 790

== ENCOUNTER → 2018-04-18 | Outpatient (CLI) | payer MEDICAID ==
[2018-04-18 09:16] LABS: BLOOD UREA NITROGEN 12 mg/dL (7-20); LITHIUM 0.8 mEq/L (0.6-1.2)
== END ==
LOC: OD 08:22
PROVIDERS: ATTEND Nurse Practitioner Psychiatric/Mental Health
DX: F40.00 Agoraphobia, unspecified (principal); Z79.899 Other long term (current) drug therapy
CPT/HCPCS: 36415; 80178; 82565; 84520

== ENCOUNTER 2018-04-25 06:29 | Emergency (ER) | payer MEDICAID ==
[2018-04-25 06:45] LABS: ABSOLUTE BASOPHILS # (AUTO) 0.1 10^3/uL (0.0-0.2); ABSOLUTE EOSINOPHILS # (AUTO) 0.3 10^3/uL (0.0-0.6); ABSOLUTE LYMPHOCYTES (AUTO) 2.5 10^3/uL (0.5-4.7); ABSOLUTE MONOCYTES (AUTO) 0.8 10^3/uL (0.1-1.4); ABSOLUTE NEUT (AUTO) 4.7 10^3/uL (1.7-8.2); HEMATOCRIT 43.7 % (36.0-47.0); HEMOGLOBIN 14.8 g/dL (12.0-15.5); LYMPHOCYTES % (AUTO) 29.9 % (13-45); MEAN CORPUSCULAR HEMOGLOBIN 32.3 pg (27.0-33.4); MEAN CORPUSCULAR HGB CONC 33.8 g/dL (32.0-36.0); MEAN CORPUSCULAR VOLUME 96 fl (80-97); MONOCYTES % (AUTO) 9.8 % (3-13); PLATELET COUNT 316 10^3/uL (150-450); RED BLOOD COUNT 4.58 10^6/uL (3.72-5.28); SEGMENTED NEUTROPHILS % (AUTO) 56.3 % (42-78); TOTAL CELLS COUNTED % (AUTO) 100 %; WHITE BLOOD COUNT 8.4 10^3/uL (4.0-10.5)
[2018-04-25] MEDS ORDERED: NALOXONE HCL INJ/PF 0.4 MG/1 ML SDV ONE (06:55)
[2018-04-25] MEDS ORDERED: NORMAL SALINE 1000 ML 1,000 ML IV ONE (07:01)
[2018-04-25] MEDS ORDERED: NORMAL SALINE 500 ML IV ONE (07:01)
[2018-04-25 08:55] LABS: BLOOD UREA NITROGEN 9 mg/dL (7-20); CALCIUM 9.6 mg/dL (8.4-10.2); GLUCOSE 92 mg/dL (75-110)
[2018-04-25 08:56] LABS: ALANINE AMINOTRANSFERASE 51 U/L (9-52); ALBUMIN 3.8 g/dL (3.5-5.0); ALKALINE PHOSPHATASE 58 U/L (38-126); ASPARTATE AMINO TRANSFERASE 27 U/L (14-36); CARBON DIOXIDE 26 mmol/L (22-30); CHLORIDE 115 mmol/L (98-107); POTASSIUM 3.9 mmol/L (3.6-5.0); SODIUM 150.1 mmol/L (137-145)
[2018-04-25 08:57] LABS: ANION GAP 9 (5-19); BILIRUBIN,DIRECT 0.3 mg/dL (0.0-0.4); BILIRUBIN,TOTAL 0.6 mg/dL (0.2-1.3)
[2018-04-25 08:57] LABS: APPEARANCE,URINE CLEAR; BILIRUBIN,URINE NEGATIVE (NEGATIVE); COLOR,URINE STRAW; GLUCOSE, URINE NEGATIVE (NEGATIVE); KETONES,URINE NEGATIVE (NEGATIVE); LEUKOCYTE ESTERASE,URINE NEGATIVE (NEGATIVE); NITRITE,URINE NEGATIVE (NEGATIVE); PROTEIN,URINE NEGATIVE (NEGATIVE); URINE SPECIFIC GRAVITY 1.009; UROBILINOGEN,URINE NEGATIVE mg/dL (<2.0)
[2018-04-25 08:58] LABS: ACETAMINOPHEN < 10 ug/mL (10-30); ALCOHOL < 10 mg/dL (NONE DETECTED); SALICYLATE < 1.0 mg/dL (2.0-20.0); TOTAL PROTEIN 6.2 g/dL (6.3-8.2)
--- NOTE | 2018-04-25 09:14 | RADIOLOGY REPORT (SQ) ---
EXAM DESCRIPTION: CT HEAD WITHOUT COMPLETED DATE/TIME: 04/25/2018 8:49 am REASON FOR STUDY: ams COMPARISON: CT brain 12/08/2007, 06/06/2009, 08/15/2010, 11/15/2015 TECHNIQUE: Axial images acquired through the brain without intravenous contrast. Images reviewed wi th bone, brain and subdural windows. Additional sagittal and coronal reconstructions were generated. Images stored on PACS. All CT scanners at this facility use dose modulation, iterative reconstruction, and/or weight based d osing when appropriate to reduce radiation dose to as low as reasonably achievable (ALARA). [facility]: Dose Right [facility]: CareDose [facility]: Dose Right [facility]: Teradose 4D [facility]: 22seeds RADIATION DOSE: CT Rad equipment meets quality standard of care and radiation dose reduction techniq ues were employed. CTDIvol: 53.2 mGy. DLP: 964 mGy-cm. mGy. LIMITATIONS: None. FINDINGS: VENTRICLES: Normal size and contour. CEREBRUM: No masses. No hemorrhage. No midline shift. No evidence for acute infarction. Normal gra y/white matter differentiation. No areas of low density in the white matter. CEREBELLUM: No masses. No hemorrhage. No alteration of density. No evidence for acute infarction. EXTRAAXIAL SPACES: No fluid collections. No masses. ORBITS AND GLOBE: No intra- or extraconal masses. Normal contour of globe without masses. CALVARIUM: No fracture. PARANASAL SINUSES: No fluid or mucosal thickening. SOFT TISSUES: No mass or hematoma. OTHER: No other significant finding. IMPRESSION: NORMAL BRAIN CT WITHOUT CONTRAST. EVIDENCE OF ACUTE STROKE: NO. COMMENT: Quality ID # [id number]: Final reports with documentation of one or more dose reduction techniques (e.g., Automated exposure control, adjustment of the mA and/or kV according to patient size, use of iterative reconstruction technique) TECHNICAL DOCUMENTATION: JOB ID: [id number] [employer]- All Rights Reserved Reading location - IP/workstation name: [email or web address]
--- NOTE | 2018-04-25 09:15 | RADIOLOGY REPORT (SQ) ---
EXAM DESCRIPTION: CHEST SINGLE VIEW COMPLETED DATE/TIME: 04/25/2018 8:57 am REASON FOR STUDY: ams COMPARISON: Abdominal films 01/05/2018, 04/11/2015 CT angio chest 09/06/2014 EXAM PARAMETERS: NUMBER OF VIEWS: One view. TECHNIQUE: Single frontal radiographic view of the chest acquired. RADIATION DOSE: NA LIMITATIONS: None. FINDINGS: LUNGS AND PLEURA: No opacities, masses or pneumothorax. No pleural effusion. MEDIASTINUM AND HILAR STRUCTURES: No masses. Contour normal. HEART AND VASCULAR STRUCTURES: Heart normal in size. Normal vasculature. BONES: No acute findings. HARDWARE: None in the chest. OTHER: No other significant finding. IMPRESSION: NO ACUTE RADIOGRAPHIC FINDING IN THE CHEST. TECHNICAL DOCUMENTATION: JOB ID: [id number] [employer]- All Rights Reserved Reading location - IP/workstation name: [email or web address]
[2018-04-25 09:35] LABS: URINE AMPHETAMINES SCREEN NEGATIVE; URINE BARBITURATES SCREEN NEGATIVE; URINE COCAINE SCREEN NEGATIVE; URINE MARIJUANA (THC) SCREEN NEGATIVE; URINE METHADONE SCREEN NEGATIVE; URINE PHENCYCLIDINE SCREEN NEGATIVE
[2018-04-25 09:59] LABS: URINE BENZODIAZEPINES SCREEN NEGATIVE
[2018-04-25 10:15] LABS: FREE T4 (FREE THYROXINE) 1.58 ng/dL (0.78-2.19)
[2018-04-25 10:29] LABS: THYROID STIMULATING HORMONE 0.1 uIU/mL (0.47-4.68)
--- NOTE | 2018-04-25 10:30 | EKG REPORT ---
SEVERITY:- ABNORMAL ECG - SINUS BRADYCARDIA LEFT ANTERIOR FASCICULAR BLOCK LOW VOLTAGE THROUGHOUT CONSIDER ANTERIOR INFARCT BORDERLINE T ABNORMALITIES, ANTERIOR LEADS : Confirmed by: Vidhi Lilly 25-Apr-2018 10:30:24
--- NOTE | 2018-04-25 12:55 | ER Document Report ---
ED General - General Chief Complaint: Possible Overdose Stated Complaint: POSSIBLE OVERDOSE Time Seen by Provider: 04/25/18 07:01 TRAVEL OUTSIDE OF THE [place] IN LAST 30 DAYS: No - HPI Patient complains to provider of: Possible overdose Notes: Patient coming in sleepy arousable to voice. Patient upon awakening states that she took 4 Neurontin prior to arrival. Patient states she did this because of her legs hurting and was told that the Neurontin to help out her leg pain. Otherwise much of the HPI is difficult to obtain this time as the patient quickly falls back asleep. Patient otherwise does have a gag reflex intact. When awake patient has a GCS of 15. Respirations are normal no signs of hypoxia. No need for Narcan at this time. Patient medications do include narcotics trazodone Neurontin lithium and Synthroid. - Related Data Allergies/Adverse Reactions: No Known Allergies Allergy (Verified 01/05/18 08:44) Past Medical History - Social History Smoking Status: Current Every Day Smoker Family History: Reviewed & Not Pertinent Patient has suicidal ideation: No Patient has homicidal ideation: No - Past Medical History Cardiac Medical History: Reports: Hx Pulmonary Embolism Denies: Hx Atrial Fibrillation, Hx Congestive Heart Failure, Hx Coronary Artery Disease, Hx Heart Attack, Hx Hypercholesterolemia, Hx Hypertension Pulmonary Medical History: Denies: Hx Asthma, Hx Bronchitis, Hx COPD, Hx Pneumonia, Hx Tuberculosis Neurological Medical History: Denies: Hx Cerebrovascular Accident, Hx Seizures Endocrine Medical History: Reports: Hx Hypothyroidism Renal/ Medical History: Denies: Hx Peritoneal Dialysis Musculoskeletal Medical History: Reports Hx Arthritis - LOWER BACK Psychiatric Medical History: Reports: Hx Anxiety, Hx Bipolar Disorder, Hx Depression, Hx Schizophrenia Past Surgical History: Reports: Hx Hysterectomy, Hx Inguinal Hernia, Other - inguinal hernia repair. Denies: Hx Appendectomy, Hx Bowel Surgery, Hx Section, Hx Cholecystectomy, Hx Mastectomy, Hx Tonsillectomy, Hx Tubal Ligation - Immunizations Hx Diphtheria, Pertussis, Tetanus Vaccination: No Review of Systems - Review of Systems Constitutional: No symptoms reported EENT: No symptoms reported Cardiovascular: No symptoms reported Respiratory: No symptoms reported Gastrointestinal: No symptoms reported Genitourinary: No symptoms reported Female Genitourinary: No symptoms reported Musculoskeletal: No symptoms reported Skin: No symptoms reported Hematologic/Lymphatic: No symptoms reported Neurological/Psychological: No symptoms reported -: Yes All other systems reviewed and negative Physical Exam - Vital signs Vitals: Pulse Ox 98 04/25/18 06:35 Interpretation: Normal - General General appearance: Appears well, Other - Patient sleeping is arousable to voice - HEENT Head: Normocephalic, Atraumatic Eyes: Normal Pupils: PERRL - Respiratory Respiratory status: No respiratory distress Chest status: Nontender Breath sounds: Normal Chest palpation: Normal - Cardiovascular Rhythm: Regular Heart sounds: Normal auscultation Murmur: No - Abdominal Inspection: Normal Distension: No distension Bowel sounds: Normal Tenderness: Nontender Organomegaly: No organomegaly - Back Back: Normal, Nontender - Extremities General upper extremity: Normal inspection, Nontender, Normal color, Normal ROM , Normal temperature General lower extremity: Normal inspection, Nontender, Normal color, Normal ROM , Normal temperature, Normal weight bearing. No: Sonya's sign - Neurological Neuro grossly intact: Yes Cognition: Normal Orientation: AAOx4 [place] Coma Scale Eye Opening: Spontaneous [place] Coma Scale Verbal: Oriented [place] Coma Scale Motor: Obeys Commands Prudencio Coma Scale Total: 15 Speech: Normal Motor strength normal: LUE, RUE, LLE, RLE Sensory: Normal - Psychological Associated symptoms: Normal affect, Normal mood - Skin Skin Temperature: Warm Skin Moisture: Dry Skin Color: Normal Course - Re-evaluation Re-evalutation: 04/25/18 15:02 Patient coming in admits to taking extra Neurontin for her leg pain. Patient was observed in the ER for over 6 hours. Patient's symptoms gradually dissipated and able to stay awake and carry on conversation. Patient was ambulate around the ER without any signs of any difficulty. Patient is also time made n.p.o. Daughter is at bedside. Patient denies any homicidal suicidal ideation sent denies any suicide attempt states she is only taking the pain medication Neurontin for the pain in her legs. Educated the patient to take medications as prescribed and daughter at bedside who is a nurse states they will go over her medications at home and make sure that she is taking the appropriate amount. Patient's follow-up primary care physician as needed. Patient also was informed her that we will level was low does continue with her lithium. Patient and family states understanding patient was discharged home follow-up primary care physician - Vital Signs Vital signs: Temp Pulse Resp BP Pulse Ox 98.2 F 66 15 147/78 H 98 04/25/18 13:02 04/25/18 13:02 04/25/18 13:02 04/25/18 13:02 04/25/18 13:02 - Laboratory Result Diagrams: 04/25/18 05:55 04/25/18 08:00 Laboratory results interpreted by me: 04/25/18 04/25/18 04/25/18 08:00 08:00 08:00 Sodium 150.1 H Chloride 115 H Total Protein 6.2 L TSH 0.10 L Salicylates < 1.0 L Acetaminophen < 10 L [place] 0.5 L Discharge - Discharge Clinical Impression: Hypernatremia Accidental overdose Qualifiers: Encounter type: initial encounter Qualified Code(s): T50.901A - Poisoning by unspecified drugs, medicaments and biological substances, accidental ( unintentional), initial encounter Condition: Good Disposition: HOME, SELF-CARE Instructions: Instructions for Home Care Following a Drug Overdose ([facility]), Overdose ([facility]) Additional Instructions: This morning when he arrived to the ER very somnolent and sleepy. I do believe that this is due to the extra Neurontin you admitted to taking. After observing you here in the ER for 6 hours and see any after effects from taking this medication. Please make sure you take your medications as prescribed. Do not take any extra medications. Return to ER for any other concerns. Your lithium level today is not detected. Please make sure you are taking all your medications as prescribed. Referrals: PANDA AMIN NP [Primary Care Provider] - Follow up as needed
[2018-04-25 13:03] VITALS: BP 147/78
== END 2018-04-25 13:19 | disposition home or self-care (01) ==
LOC: ER 06:29
DX: T42.6X1A Poisoning by other antiepileptic and sedative-hypnotic drugs, accidental (unintentional), initial encounter (principal); E87.0 Hyperosmolality and hypernatremia; M79.604 Pain in right leg; M79.605 Pain in left leg; F17.200 Nicotine dependence, unspecified, uncomplicated
CPT/HCPCS: 93005; 99285; 96360; 96361; 36415; 84439; 80307 ×4; 82140; 82550; 80178; 84443; 85025; 80053; 81001; 84484; 71045; 70450; 93010; J7040

== ENCOUNTER → 2019-05-24 | Outpatient (CLI) | payer MEDICAID ==
--- NOTE | 2019-05-24 13:20 | RADIOLOGY REPORT (SQ) ---
EXAM DESCRIPTION: CT ABDOMEN COMBO COMPLETED DATE/TIME: 05/24/2019 12:09 pm REASON FOR STUDY: E27.8 OTHER SPECIFIED DISORDERS OF ADRENAL GLAND E27.8 OTHER SPECIFIED DISORDERS OF ADRENAL GLAND COMPARISON: CT abdomen pelvis 12/16/2006, 05/12/2007, 01/05/2018 TECHNIQUE: CT scan of the abdomen performed with and without intravenous contrast, and without oral contrast. Contrasted imaging performed using helical scanning technique with dynamic intravenous cont rast injection. Images reviewed with lung, soft tissue, and bone windows. Reconstructed coronal and s agittal MPR images reviewed. Delayed images for evaluation of the urinary system also acquired and ev aluated. All images stored on PACS. All CT scanners at this facility use dose modulation, iterative reconstruction, and/or weight based d osing when appropriate to reduce radiation dose to as low as reasonably achievable (ALARA). [facility]: Dose Right [facility]: CareDose [facility]: Dose Right [facility]: Teradose 4D [facility]: [employer] CONTRAST TYPE AND DOSE: contrast/concentration: Isovue 350.00 mg/ml; Total Contrast Delivered: 46.0 ml; Total Saline Delivered: 70.0 ml RENAL FUNCTION: Creatinine 0.7 RADIATION DOSE: CT Rad equipment meets quality standard of care and radiation dose reduction techniq ues were employed. CTDIvol: 3.9 - 16.9 mGy. DLP: 678 mGy-cm.. LIMITATIONS: None. FINDINGS: NONCONTRASTED IMAGING: No significant renal calcifications. No other significant organ theresa cifications. POSTCONTRASTED IMAGING: LOWER CHEST: No significant findings. No nodules or infiltrates. LIVER: Normal size. No masses. No dilated ducts. SPLEEN: Normal size. No focal lesions. PANCREAS: No masses. No significant calcifications. No adjacent inflammation or peripancreatic fluid collections. Pancreatic duct not dilated. GALLBLADDER: Surgically absent ADRENAL GLANDS: On the right side, a well-circumscribed homogeneous soft tissue density nodule is pre sent along the right adrenal gland 2.6 cm AP by 2 cm transverse by 3 cm craniocaudad. This measures 2.5 Hounsfield units on the precontrasted images, enhances to about 20-23 Hounsfield units on immedia te/portal venous phase, washout of contrast enhancement 12 Hounsfield units on the delayed images. B ecause this measures less than 10 Hounsfield units on noncontrast imaging, this most likely represent s a benign nonfunctioning right adrenal adenoma. RIGHT KIDNEY AND URETER: No solid masses. No significant calcifications. No hydronephrosis or hyd roureter. LEFT KIDNEY AND URETER: No solid masses. No significant calcifications. No hydronephrosis or hydr oureter. AORTA AND VESSELS: No aneurysm. No dissection. Renal arteries, SMA, celiac without stenosis. RETROPERITONEUM: No retroperitoneal adenopathy, hemorrhage or masses. BOWEL AND PERITONEAL CAVITY: No masses or inflammatory changes. No free fluid or peritoneal masses. APPENDIX: Not in the field of view ABDOMINAL WALL: No masses. No hernias. BONES: No significant or acute findings. OTHER: No other significant finding. IMPRESSION: 2.6 x 2 x 3 cm right adrenal nodule likely a benign adenoma. TECHNICAL DOCUMENTATION: JOB ID: [id number] Quality ID # [id number]: Final reports with documentation of one or more dose reduction techniques (e.g., Au tomated exposure control, adjustment of the mA and/or kV according to patient size, use of iterative reconstruction technique) 2010 [employer]- All Rights Reserved Reading location - IP/workstation name: [email or web address]
== END ==
LOC: RAD 11:37
PROVIDERS: ATTEND Internal Medicine Endocrinology, Diabetes & Metabolism
DX: E27.8 Other specified disorders of adrenal gland (principal)
CPT/HCPCS: 74170; 82565

== ENCOUNTER → 2019-10-13 | Outpatient (CLI) | payer MEDICAID ==
[2019-10-13 08:27] LABS: ABSOLUTE BASOPHILS # (AUTO) 0.1 10^3/uL (0.0-0.2); ABSOLUTE EOSINOPHILS # (AUTO) 0.3 10^3/uL (0.0-0.6); ABSOLUTE LYMPHOCYTES (AUTO) 1.7 10^3/uL (0.5-4.7); ABSOLUTE MONOCYTES (AUTO) 0.6 10^3/uL (0.1-1.4); ABSOLUTE NEUT (AUTO) 5.9 10^3/uL (1.7-8.2); BASOPHILS % (AUTO) 1.2 % (0-2); HEMATOCRIT 42.9 % (36.0-47.0); LYMPHOCYTES % (AUTO) 19.2 % (13-45); MEAN CORPUSCULAR HEMOGLOBIN 32.6 pg (27.0-33.4); MEAN CORPUSCULAR HGB CONC 34.9 g/dL (32.0-36.0); MEAN CORPUSCULAR VOLUME 93 fl (80-97); MONOCYTES % (AUTO) 7.4 % (3-13); PLATELET COUNT 249 10^3/uL (150-450); RED BLOOD COUNT 4.59 10^6/uL (3.72-5.28); RED CELL DISTRIBUTION WIDTH 13.5 % (11.5-14.0); SEGMENTED NEUTROPHILS % (AUTO) 68.2 % (42-78); TOTAL CELLS COUNTED % (AUTO) 100 %; WHITE BLOOD COUNT 8.6 10^3/uL (4.0-10.5)
[2019-10-13 08:52] LABS: ALBUMIN 4.4 g/dL (3.5-5.0); ALKALINE PHOSPHATASE 40 U/L (38-126); ANION GAP 5 (5-19); ASPARTATE AMINO TRANSFERASE 24 U/L (14-36); BILIRUBIN,TOTAL 0.4 mg/dL (0.2-1.3); BLOOD UREA NITROGEN 12 mg/dL (7-20); CALCIUM 9.7 mg/dL (8.4-10.2); CARBON DIOXIDE 26 mmol/L (22-30); CHLORIDE 106 mmol/L (98-107); GLUCOSE 92 mg/dL (75-110); LITHIUM 0.8 mEq/L (0.6-1.2); POTASSIUM 5.3 mmol/L (3.6-5.0); TOTAL PROTEIN 6.7 g/dL (6.3-8.2)
[2019-10-13 09:03] LABS: FREE T4 (FREE THYROXINE) 1.4 ng/dL (0.78-2.19)
[2019-10-13 09:17] LABS: THYROID STIMULATING HORMONE 1.39 uIU/mL (0.47-4.68)
== END ==
LOC: OD 07:47
PROVIDERS: ATTEND Nurse Practitioner Psychiatric/Mental Health
DX: F40.00 Agoraphobia, unspecified (principal); Z79.899 Other long term (current) drug therapy
CPT/HCPCS: 36415; 80053; 80178; 84439; 84443; 85025

== ENCOUNTER → 2020-03-22 | Outpatient (CLI) | payer MEDICAID ==
[2020-03-22 09:45] LABS: ALBUMIN 4.2 g/dL (3.5-5.0); ALKALINE PHOSPHATASE 68 U/L (38-126); ANION GAP 11 (5-19); ASPARTATE AMINO TRANSFERASE 26 U/L (14-36); BILIRUBIN,DIRECT 0.3 mg/dL (0.0-0.4); BILIRUBIN,TOTAL 0.4 mg/dL (0.2-1.3); BLOOD UREA NITROGEN 8 mg/dL (7-20); CALCIUM 9.3 mg/dL (8.4-10.2); CARBON DIOXIDE 22 mmol/L (22-30); CHLORIDE 105 mmol/L (98-107); GLUCOSE 106 mg/dL (75-110); POTASSIUM 4.1 mmol/L (3.6-5.0); TOTAL PROTEIN 6.1 g/dL (6.3-8.2)
== END ==
LOC: OD 07:52
PROVIDERS: ATTEND Nurse Practitioner Psychiatric/Mental Health
DX: F40.00 Agoraphobia, unspecified (principal)
CPT/HCPCS: 36415; 80053; 80178; 84436; 84443